=== PATIENT | female | born 1935 | race Caucasian/White ===

== ENCOUNTER 2017-02-04 09:02 | Inpatient (IN) | payer MEDICARE ==
[~2017-02-04] VITALS: Ht 167.6 cm; Wt 72.3 kg
[2017-02-04] MEDS ORDERED: LEVEMIR SQ (09:31)
[2017-02-04] MEDS ORDERED: ARMO30TA PO (09:31)
[2017-02-04] MEDS ORDERED: METF1000 PO (09:31)
[2017-02-04] MEDS ORDERED: CLON1TAB PO (09:31)
[2017-02-04] MEDS ORDERED: FLUT50SP EACH NARE (09:31)
[2017-02-04] MEDS ORDERED: ATOR40TA16 PO (09:31)
[2017-02-04] MEDS ORDERED: OXYC-432 PO (09:31)
[2017-02-04] MEDS ORDERED: ASPI-110 PO (09:31)
[2017-02-04] MEDS ORDERED: ALBUAER3 INH (09:35)
--- NOTE | 2017-02-11 11:16 | PD.HP.UP ---
H&P Update Note The Pre-Admit History and Physical Examination regarding the above named patient was reviewed (including, but not limited to, vital signs, heart, lungs, co-morbid conditions), and upon re-examination it is noted that: the patient's condition has not significantly changed since the last examination. Venancio Wilson MD Feb 11, 2017 11:16
[2017-02-11] MEDS ORDERED: CHLORHEXIDINE GLUCONATE 2 % 1 PACK (2 CLOTHS) TOPICAL PRN (11:45)
[2017-02-11] MEDS ORDERED: LACTATED RINGER'S 1000 ML IV PRN (11:45)
[2017-02-11] MEDS ORDERED: METRONIDAZOLE 500 MG/100 ML ISONTONIC SOLN IV SCH (11:45)
[2017-02-11] MEDS ORDERED: DEXT 5%-NACL 0.9% 1000 ML INJ 1,000 ML IV SCH (11:45)
[2017-02-11] MEDS ORDERED: ALVIMOPAN 12 MG CAPSULE - On Call PO SCH (11:45)
[2017-02-11] MEDS ORDERED: POVIDONE IODINE 5% (ANTISEPSIS KIT) 4 APPLICATIONS EACH NARE PRN (11:45)
[2017-02-11] MEDS ORDERED: METOPROLOL TARTRATE 25 MG TAB PO PRN (11:45)
[2017-02-11] MEDS ORDERED: INSULIN HUMAN REGULAR 1,000 UNITS/10 ML VIAL SQ PRN (11:45)
[2017-02-11] MEDS ORDERED: SODIUM CHLORID 0.9% 500 ML IV PRN (11:45)
[2017-02-11] MEDS ORDERED: LEVOFLOXACIN 500 MG PREMIX INJ 100 ML IV SCH (11:45)
[2017-02-11] MEDS ORDERED: LACTATED RINGER'S 1000 ML INJ 1,000 ML IV ONE (12:00)
[2017-02-11] MEDS ORDERED: ONDANSETRON HCL 4 MG/2 ML VIAL IV PUSH ONE (12:00)
[2017-02-11] MEDS ORDERED: NORMOSOL R INJ 1,000 ML IV ONE (12:00)
[2017-02-11] MEDS ORDERED: PROPOFOL 200 MG/20 ML AMP IV ONE (12:00)
[2017-02-11 12:11] VITALS: BP 106/59; PULSE 74; RESP 20; TEMP 98; O2SAT 99
[2017-02-11] MEDS ORDERED: BUPIVACAINE HCL PF 0.5% 30 ML VIAL ONE (14:37)
[2017-02-11] MEDS ORDERED: SUGAMMADEX SODIUM 200 MG/2 ML VIAL IV PUSH ONE ×2 (15:14)
[2017-02-11] MEDS ORDERED: HYDROmorphone HCL PF 2 MG/ML VIAL ONE (15:14)
--- NOTE | 2017-02-11 16:14 | HHI.PR ---
Immediate Post Op Note Procedure Date: Feb 11, 2017 Pre Op Diagnosis: Diverticulitis Post Op Diagnosis: same, adhesions Surgeon: Venancio Wilson [employer] Worker(s): Marcella Procedure: Exploratory lap, LAR Findings: segm of RS hard c/w diverticulitis, adhesions to lt pelvic sidewall liver nl ut/ovaries absent, Gall bladder absent Complications: none Specimen(s) removed: rectosigmoid colon Estimated blood loss: 100cc Anesthesia: General Drains: IVON IVF Patient to: PACU Patient Condition: Good Venancio Wilson MD Feb 11, 2017 16:14
[2017-02-11] MEDS ORDERED: KETOROLAC TROMETHAMINE 30 MG/ML (IVP) VIAL IVP PRN (16:15)
[2017-02-11] MEDS ORDERED: POTASSIUM CHLOR 20 MEQ PREMIX 100 ML IV PRN (16:15)
[2017-02-11] MEDS ORDERED: NALOXONE HCL 0.4 MG/ML AMP IV PRN ×2 (16:15→17:15)
[2017-02-11] MEDS ORDERED: BUPIVACAINE HCL PF 0.5% 30 ML VIAL NB SCH (16:15)
[2017-02-11] MEDS ORDERED: ENALAPRILAT 1.25 MG/ML VIAL IV PRN (16:15)
[2017-02-11] MEDS ORDERED: ACETAMINOPHEN 325 MG TAB PO PRN (16:15)
[2017-02-11] MEDS ORDERED: MORPHINE SULFATE 30 MG/30 ML PCA IV SCH (16:15)
[2017-02-11] MEDS ORDERED: Post-op Orders (for Pharmacy) MISC XX ONE (16:15)
[2017-02-11] MEDS ORDERED: POTASSIUM CHLOR 40 MEQ PREMIX 100 ML IV PRN (16:15)
[2017-02-11] MEDS ORDERED: ENALAPRILAT 2.5 MG/2 ML VIAL IV PRN (16:15)
[2017-02-11] MEDS ORDERED: SODIUM CHLORIDE 0.9% FLUSH 5 ML FLUSH IVF PRN (16:15)
[2017-02-11] MEDS ORDERED: PCA - TOTAL MG MORPHINE DELIVERED PER SHIFT SCH (16:15)
[2017-02-11] MEDS ORDERED: ACETAMINOPHEN/HYDROcodone 325 MG/5 MG TAB PO PRN (16:15)
[2017-02-11] MEDS ORDERED: BENZOCAINE 6 MG/MENTHOL 10 MG LOZENGE BUCCAL PRN (16:15)
[2017-02-11] MEDS ORDERED: fentaNYL CITRATE 250 MCG/5 ML AMP ONE (16:21)
[2017-02-11] MEDS ORDERED: ACETAMINOPHEN 1000 MG/100 ML VIAL IV ONE (16:21)
[2017-02-11] MEDS ORDERED: *HYDROmorphone PF 1 MG VIAL PERIprocedural Use ONLY ONE (16:43)
[2017-02-11] MEDS ORDERED: ALBUTEROL SULFATE 90 MCG/ACT HFA 18 GM INHALER INH PRN (16:45)
[2017-02-11] MEDS ORDERED: GLUCAGON 1 MG/ML VIAL OTHER PRN (16:45)
[2017-02-11] MEDS ORDERED: DEXTROSE 50% IN WATER 50 ML VIAL(D50) IV PRN (16:45)
[2017-02-11] MEDS ORDERED: HYDROmorphone HCL PCA 6 MG/30 ML IV ONE (17:01)
[2017-02-11] MEDS: D5-NS + KCL 20 MEQ INJ 1,000 ML IV SCH ×2 (17:12→23:31)
[2017-02-11] MEDS ORDERED: HYDROmorphone HCL PCA 6 MG/30 ML IV SCH (17:15)
[2017-02-11] MEDS: metroNIDAZOLE 500 MG INJ 100 ML IV SCH (20:55)
[2017-02-11] MEDS: METOCLOPRAMIDE HCL 10 MG/2 ML VIAL IVS SCH (21:00)
[2017-02-11] MEDS: SODIUM CHLORIDE 0.9% FLUSH 5 ML FLUSH IVF SCH (21:00)
[2017-02-11] MEDS: ONDANSETRON HCL 4 MG/2 ML VIAL IV PRN (21:53)
[2017-02-11 22:00] VITALS: BP 144/65; PULSE 92; RESP 10; TEMP 97.5; O2SAT 90
[2017-02-11] MEDS: PCA - TOTAL MG DILAUDID DELIVERED PER SHIFT SCH (22:00)
[2017-02-11 22:13] VITALS: O2SAT 95
[2017-02-12] VITALS (12 sets, daily range): BP systolic 103–152; BP diastolic 56–66; PULSE 63–88; RESP 12–21; TEMP 97.4–98.9; O2SAT 95–99
[2017-02-12] MEDS: metroNIDAZOLE 500 MG INJ 100 ML IV SCH ×2 (04:06→11:24)
[2017-02-12] MEDS: D5-NS + KCL 20 MEQ INJ 1,000 ML IV SCH ×2 (04:06→11:24)
[2017-02-12 04:11] LABS: AUTOMATED NEUTROPHIL # 7.2 TH/MM3 (1.8-7.7); BASOPHIL % 0.1 % (0.0-2.0); HEMATOCRIT 36.9 % (35.0-46.0); HEMO FLAGS DIFF FINAL; LYMPH % 3.4 % (9.0-44.0); LYMPHOCYTE # 0.3 TH/MM3 (1.0-4.8); MEAN CELL VOLUME 90.4 FL (80.0-100.0); MEAN CORPUSCULAR HEMOGLOBIN 29.8 PG (27.0-34.0); NEUT % 89.5 % (16.0-70.0); PLATELET COUNT 195 TH/MM3 (150-450); RED BLOOD COUNT 4.08 MIL/MM3 (4.00-5.30); RED CELL DISTRIBUTION WIDTH 13.5 % (11.6-17.2); WHITE BLOOD COUNT 8.1 TH/MM3 (4.0-11.0)
[2017-02-12 04:46] LABS: BICARBONATE 24.2 MEQ/L (21.0-32.0); POTASSIUM 4.8 MEQ/L (3.5-5.1)
[2017-02-12] MEDS: PCA - TOTAL MG DILAUDID DELIVERED PER SHIFT SCH ×3 (06:00→21:24)
[2017-02-12] MEDS: INSULIN NovoLIN REGULAR SUPPLEMENTAL SCALE SQ SCH ×5 (06:36→21:00)
[2017-02-12] MEDS: SODIUM CHLORIDE 0.9% FLUSH 5 ML FLUSH IVF SCH ×2 (07:33→21:00)
--- NOTE | 2017-02-12 07:33 | HHI.PR ---
Subjective Remarks C/R Surg POD#1 afebrile, VSS UO good IVON min Objective - Vital Signs Date Time Temp Pulse Resp B/P Pulse Ox O2 Delivery O2 Flow Rate FiO2 02/12/17 06:00 66 02/12/17 04:00 97.8 13 136/60 95 02/11/17 22:13 Nasal Cannula 2.00 Result Diagram: 02/12/17 0349 02/12/17 034 Objective Remarks PE alert Abd - soft, wound dry, min tympany A/P Assessment and Plan iMP: Stable post-op OOB decr IVF tx to floor Venancio Wilson MD Feb 12, 2017 07:33
[2017-02-12] MEDS: PANTOPRAZOLE SODIUM 40 MG VIAL IVP SCH (08:22)
[2017-02-12] MEDS: PANTOPRAZOLE SOD 40 MG DELAYED RELEASE TAB PO SCH (08:23)
[2017-02-12] MEDS: THYROID 30 MG TAB PO SCH (08:23)
[2017-02-12] MEDS: ALVIMOPAN 12 MG CAPSULE PO SCH ×2 (08:23→21:22)
[2017-02-12] MEDS: METOCLOPRAMIDE HCL 10 MG/2 ML VIAL IVS SCH ×2 (08:23→21:23)
[2017-02-12] MEDS ORDERED: ALVIMOPAN 12 MG CAPSULE - Post-op dosing PO SCH (09:00)
[2017-02-12] MEDS: LEVOFLOXACIN 500 MG PREMIX INJ 100 ML IV SCH (12:35)
[2017-02-12] MEDS: ONDANSETRON HCL 4 MG/2 ML VIAL IV PRN (21:23)
[2017-02-12] MEDS: ACETAMINOPHEN/HYDROcodone 325 MG/5 MG TAB PO PRN (21:23)
[2017-02-13] VITALS (7 sets, daily range): BP systolic 127–143; BP diastolic 56–72; PULSE 72–91; RESP 16–20; TEMP 97–98.4; O2SAT 94–99
[2017-02-13] MEDS: D5-NS + KCL 20 MEQ INJ 1,000 ML IV SCH ×2 (00:06→13:47)
[2017-02-13] MEDS: PCA - TOTAL MG DILAUDID DELIVERED PER SHIFT SCH ×2 (05:47→11:33)
[2017-02-13] MEDS: INSULIN NovoLIN REGULAR SUPPLEMENTAL SCALE SQ SCH ×4 (05:48→20:01)
[2017-02-13 07:06] LABS: AUTOMATED NEUTROPHIL # 6.6 TH/MM3 (1.8-7.7); BASOPHIL % 0.4 % (0.0-2.0); EOSINOPHIL # 0.1 TH/MM3 (0-0.4); EOSINOPHIL % 1.3 % (0.0-4.0); HEMATOCRIT 33.2 % (35.0-46.0); HEMO FLAGS DIFF FINAL; LYMPH % 12.5 % (9.0-44.0); MEAN CELL VOLUME 90.4 FL (80.0-100.0); MEAN CORPUSCULAR HEMOGLOBIN 29.7 PG (27.0-34.0); MEAN CORPUSCULAR HGB CONC 32.8 % (32.0-36.0); MONO % 7.1 % (0.0-8.0); NEUT % 78.7 % (16.0-70.0); PLATELET COUNT 190 TH/MM3 (150-450); RED BLOOD COUNT 3.68 MIL/MM3 (4.00-5.30); RED CELL DISTRIBUTION WIDTH 13.6 % (11.6-17.2); WHITE BLOOD COUNT 8.4 TH/MM3 (4.0-11.0)
[2017-02-13] MEDS: PANTOPRAZOLE SODIUM 40 MG VIAL IVP SCH (07:25)
[2017-02-13] MEDS: ALVIMOPAN 12 MG CAPSULE PO SCH ×2 (07:27→20:01)
[2017-02-13] MEDS: THYROID 30 MG TAB PO SCH (07:27)
[2017-02-13] MEDS: METOCLOPRAMIDE HCL 10 MG/2 ML VIAL IVS SCH (07:27)
[2017-02-13] MEDS: PANTOPRAZOLE SOD 40 MG DELAYED RELEASE TAB PO SCH (07:27)
[2017-02-13] MEDS: SODIUM CHLORIDE 0.9% FLUSH 5 ML FLUSH IVF SCH ×2 (07:28→20:01)
[2017-02-13 07:43] LABS: BICARBONATE 21.3 MEQ/L (21.0-32.0); POTASSIUM 4.1 MEQ/L (3.5-5.1)
[2017-02-13] MEDS: FUROSEMIDE 20 MG/2 ML VIAL IV PUSH SCH ×2 (07:44→20:01)
[2017-02-13] MEDS: ACETAMINOPHEN/HYDROcodone 325 MG/5 MG TAB PO PRN ×2 (09:11→22:18)
[2017-02-13] MEDS: LEVOFLOXACIN 500 MG PREMIX INJ 100 ML IV SCH (11:55)
[2017-02-13] MEDS: ONDANSETRON HCL 4 MG/2 ML VIAL IV PRN ×2 (16:52→22:18)
--- NOTE | 2017-02-13 17:41 | HHI.PR ---
Subjective Remarks C/R Surg POD#2 afebrile, VSS UO good IVON min Objective - Vital Signs Date Time Temp Pulse Resp B/P Pulse Ox O2 Delivery O2 Flow Rate FiO2 02/13/17 11:33 14 02/13/17 08:00 97.3 82 143/69 95 02/12/17 20:00 Room Air 02/12/17 08:32 21 02/12/17 07:00 2.00 Result Diagram: 02/13/17 0537 02/13/17 0537 Objective Remarks PE alert Abd - soft, wound dry, min tympany, On-Q dc'd A/P Assessment and Plan iMP: OOB decr IVF adv diet Venancio Wilson MD Feb 13, 2017 17:41
[2017-02-13] MEDS ORDERED: METOCLOPRAMIDE HCL 10 MG/2 ML VIAL IVS PRN (18:00)
[2017-02-14 04:00] VITALS: BP 118/56; PULSE 74; RESP 18; TEMP 97.5; O2SAT 95
[2017-02-14] MEDS: D5-NS + KCL 20 MEQ INJ 1,000 ML IV SCH (05:46)
[2017-02-14] MEDS: INSULIN NovoLIN REGULAR SUPPLEMENTAL SCALE SQ SCH ×4 (05:48→20:19)
--- NOTE | 2017-02-14 06:10 | MP ---
cc: CAMI HUANG M.D. DATE OF SURGERY: 02/11/2017 PREOPERATIVE DIAGNOSIS: Chronic diverticulitis with obstruction. OPERATION: 1. Exploratory laparotomy with lysis of adhesions, proctosigmoidectomy and low pelvic anastomosis. 2. Omental flap. POSTOPERATIVE DIAGNOSIS: Exploratory laparotomy with lysis of adhesions, proctosigmoidectomy and low pelvic anastomosis to omental flap. SURGEON: Cami Huang MD. SURG TECH: Thomas Naranjo MD. PROCEDURE The patient was placed in the supine position. After adequate general anesthesia her legs were placed in [place] stirrups and supported appropriately. The abdomen and perineum then prepped with Betadine solution and draped in usual sterile fashion. With Dr. Naranjo's assistance the abdomen was opened through an infraumbilical transverse incision dividing the rectus muscles with electrocautery. Exploration revealed quite a few adhesions upon getting into the abdominal cavity from her previous midline incision. Most of these were omental adhesions stuck down to the pelvis at the site of her chronic diverticular inflammation. The colon was thickened and consistent with chronic diverticular disease. No acute inflammation was seen. The sigmoid colon was also twisted and somewhat fixed in position at the previous site of the left adnexa making for very tight sigmoid loop turned. The proximal colon was palpated and felt to be pretty unremarkable. The liver was normal. The gallbladder was absent. The stomach and duodenum were normal. The great vessels were of normal caliber and fairly soft. The uterus and ovaries were both absent. First the sigmoid colon was mobilized medially by dividing along the white line of Toldt. The left ureter was easily identified and preserved. Dissection then proceeded up the left gutter freeing attachments to the retroperitoneum mobilizing the splenic flexure entering the lesser sac and taking the gastrocolic omentum off the transverse colon. The right retroperitoneal space was then opened the bowel dissected off the presacral fascia preserving the presacral nerves. The pedicle for the superior hemorrhoidal vessels identified and divided between Joy's obtaining hemostasis with Vicryl ties. Dissection then proceeded down to the pelvis mobilizing the bowel off the presacral fascia toward the pelvic floor. The rectum appeared of suitable for anastomosis and the bowel, the mesorectum was divided in the proximal rectum between Gricelda between using the electrocautery and Joy clamps for hemostasis as needed. The bowel was finally divided between a pursestring suture device and a Gricelda clamp. The bowel was then sized to reach the rectal stump without tension and with good blood supply dividing the marginal artery at the appropriate point. The bowel was then divided between a pursestring suture device and a Gricelda clamp removing the specimen. The end of the bowel was sized to accept a 29-mm EEA stapling anvil. This was secured with a pursestring suture. Dr. Nraanjo inserted the EEA stapling instrument transanally under direct vision was brought up to the rectal pouch, into the rectal pouch and the pursestring suture tied. The stapler was then reassembled the bowel line properly the staple closed and fired upon withdrawal two complete doughnuts of tissue were seen. Gentle insufflation did confirm an airtight anastomosis. The abdomen was then irrigated copiously with normal saline. Adequate hemostasis was achieved at all sites. Gonzalo-King drain was placed down into the presacral space and brought up through a stab wound in the right lower quadrant secured to the skin with a nylon suture. The transverse incision was closed anatomically using one #1 PDS sutures in a running fashion to reapproximate the respective fascial layers. Two catheters were placed into the rectus sheath on both sides and brought up through subcutaneous tunnels above the transverse incision. The Subcu tissues irrigated copiously and the skin closed with a running subcuticular Vicryl suture. Wound area washed with normal saline and dried, sterile dressing of Telfa and gauze applied. The patient tolerated the procedure quite well and was brought to recovery room in stable condition. Sponge and needle counts were correct at the end of the procedure. MD ESSENCE Khanna/lela /5:57 PM /5:38 AM
[2017-02-14 08:00] VITALS: BP 130/62; PULSE 72; RESP 16; TEMP 98.2; O2SAT 96
--- NOTE | 2017-02-14 08:44 | HHI.PR ---
Subjective Remarks POD#3 LAR comfortable, hungry Objective Vital Signs Date Time Temp Pulse Resp B/P Pulse Ox O2 Delivery O2 Flow Rate FiO2 02/14/17 08:00 98.2 72 16 130/62 96 02/14/17 04:00 97.5 74 18 118/56 95 02/13/17 23:00 20 02/13/17 22:00 98.4 81 20 131/68 95 02/13/17 20:00 Room Air 02/13/17 20:00 97.2 84 20 127/60 97 02/13/17 16:00 97.7 72 18 137/63 99 02/13/17 12:00 97.0 91 16 140/61 96 02/13/17 11:33 14 I/O 02/13/17 02/13/17 02/13/17 02/14/17 02/14/17 02/14/17 07:00 15:00 23:00 07:00 15:00 23:00 Intake Total 411 ml 910 ml 120 ml 120 ml Output Total 375 ml 145 ml Balance 36 ml 910 ml -25 ml 120 ml Intake Oral 0 ml 360 ml 120 ml 120 ml IV Total 411 ml 550 ml 0 ml Output Urine Total 325 ml Drainage Total 50 ml 145 ml # Voids 1 4 6 # Bowel Movements 0 0 0 0 Result Diagram: 02/13/17 0537 02/13/17 05 Objective Remarks Abdomen soft, nondistended, tender Wound clean IVON serosanguinous Assessment and Plan Assessment and Plan Advance diet Continue IVON HL IV Home soon Helena Mcneil MD Feb 14, 2017 08:44
[2017-02-14] MEDS: PANTOPRAZOLE SOD 40 MG DELAYED RELEASE TAB PO SCH (09:00)
[2017-02-14] MEDS: FUROSEMIDE 20 MG/2 ML VIAL IV PUSH SCH ×2 (09:00→20:17)
[2017-02-14] MEDS: PANTOPRAZOLE SODIUM 40 MG VIAL IVP SCH (09:42)
[2017-02-14] MEDS: SODIUM CHLORIDE 0.9% FLUSH 5 ML FLUSH IVF SCH ×2 (09:43→20:18)
[2017-02-14] MEDS: THYROID 30 MG TAB PO SCH (09:43)
[2017-02-14] MEDS: ALVIMOPAN 12 MG CAPSULE PO SCH ×2 (10:19→20:16)
[2017-02-14 12:00] VITALS: BP 123/37; PULSE 83; RESP 16; TEMP 98.6; O2SAT 97
[2017-02-14 16:00] VITALS: BP 137/71; PULSE 78; RESP 17; TEMP 97.9; O2SAT 97
[2017-02-14 20:00] VITALS: BP 127/63; PULSE 80; RESP 18; TEMP 99.5; O2SAT 94
[2017-02-15] VITALS: BP 117/54; PULSE 71; RESP 18; TEMP 99.3; O2SAT 95
[2017-02-15] MEDS: INSULIN NovoLIN REGULAR SUPPLEMENTAL SCALE SQ SCH ×4 (05:49→21:00)
[2017-02-15 08:00] VITALS: BP 129/65; PULSE 81; RESP 17; TEMP 98.7; O2SAT 96
[2017-02-15] MEDS: ALVIMOPAN 12 MG CAPSULE PO SCH ×2 (09:00→21:00)
[2017-02-15] MEDS: PANTOPRAZOLE SODIUM 40 MG VIAL IVP SCH (09:00)
[2017-02-15] MEDS: SODIUM CHLORIDE 0.9% FLUSH 5 ML FLUSH IVF SCH ×2 (09:00→21:00)
[2017-02-15] MEDS: FUROSEMIDE 20 MG/2 ML VIAL IV PUSH SCH ×2 (09:00→21:00)
--- NOTE | 2017-02-15 09:06 | HHI.PR ---
Subjective Remarks POD#3 LAR comfortable, slightly nauseous Objective Vital Signs Date Time Temp Pulse Resp B/P Pulse Ox O2 Delivery O2 Flow Rate FiO2 02/15/17 08:00 98.7 81 17 129/65 96 02/15/17 00:00 99.3 71 18 117/54 95 02/14/17 20:10 Room Air 02/14/17 20:00 99.5 80 18 127/63 94 02/14/17 16:00 97.9 78 17 137/71 97 02/14/17 12:00 98.6 83 16 123/37 97 I/O 02/14/17 02/14/17 02/14/17 02/15/17 02/15/17 02/15/17 07:00 15:00 23:00 07:00 15:00 23:00 Intake Total 120 ml 1720 ml 240 ml 320 ml Output Total 75 ml 60 ml 970 ml Balance 120 ml 1645 ml 180 ml -650 ml Intake Oral 120 ml 1720 ml 240 ml 320 ml Output Urine Total 900 ml Drainage Total 75 ml 60 ml 70 ml # Voids 6 7 1 1 # Bowel Movements 0 5 0 0 Result Diagram: 02/13/17 0537 02/13/17 0537 Objective Remarks Abdomen soft, nondistended, tender Wound clean IVON serosanguinous Assessment and Plan Assessment and Plan Advance diet D/C IVON Recheck labs Helena Mcneil MD Feb 15, 2017 09:05
[2017-02-15] MEDS ORDERED: clonazePAM 0.5 MG TAB PO PRN (09:15)
[2017-02-15] MEDS: PANTOPRAZOLE SOD 40 MG DELAYED RELEASE TAB PO SCH (09:19)
[2017-02-15] MEDS: THYROID 30 MG TAB PO SCH (11:28)
[2017-02-15 12:00] VITALS: BP 110/62; PULSE 77; RESP 16; TEMP 98.6; O2SAT 97
[2017-02-15 12:11] LABS: BICARBONATE 26.7 MEQ/L (21.0-32.0); MAGNESIUM 1.8 MG/DL (1.5-2.5); POTASSIUM 3.8 MEQ/L (3.5-5.1)
[2017-02-15 16:00] VITALS: BP 118/60; PULSE 78; RESP 17; TEMP 97.5; O2SAT 97
[2017-02-15 20:00] VITALS: BP 109/56; PULSE 80; RESP 20; TEMP 96.7; O2SAT 95
[2017-02-16] VITALS: BP 121/60; PULSE 84; RESP 20; TEMP 98.1; O2SAT 94
[2017-02-16] MEDS: INSULIN NovoLIN REGULAR SUPPLEMENTAL SCALE SQ SCH ×3 (07:00→16:00)
[2017-02-16 07:53] VITALS: BP 117/60; PULSE 84; RESP 19; TEMP 97.4; O2SAT 96
[2017-02-16] MEDS: FUROSEMIDE 20 MG/2 ML VIAL IV PUSH SCH (09:00)
[2017-02-16] MEDS: SODIUM CHLORIDE 0.9% FLUSH 5 ML FLUSH IVF SCH (09:00)
[2017-02-16] MEDS: ALVIMOPAN 12 MG CAPSULE PO SCH (09:00)
[2017-02-16] MEDS: PANTOPRAZOLE SODIUM 40 MG VIAL IVP SCH (09:00)
[2017-02-16] MEDS: PANTOPRAZOLE SOD 40 MG DELAYED RELEASE TAB PO SCH (09:08)
[2017-02-16] MEDS: THYROID 30 MG TAB PO SCH (09:09)
[2017-02-16 12:00] VITALS: BP 126/60; PULSE 77; RESP 19; TEMP 97.1; O2SAT 95
--- NOTE | 2017-02-16 15:04 | HHI.PR ---
Subjective Remarks C/R Surg POD#5 afebrile, VSS UO good IVON dc'd +BM Objective - Vital Signs Date Time Temp Pulse Resp B/P Pulse Ox O2 Delivery O2 Flow Rate FiO2 02/16/17 12:00 97.1 77 19 126/60 95 02/15/17 22:00 Room Air 02/12/17 08:32 21 02/12/17 07:00 2.00 Result Diagram: 02/13/17 0537 02/15/17 1108 Objective Remarks PE alert Abd - soft, wound dry, min tympany, A/P Assessment and Plan iMP: OOB decr IVF adv diet dc plans Venancio Wilson MD Feb 16, 2017 15:04
--- NOTE | 2017-03-10 21:21 | MD ---
cc: VERONICA SEE,CAMI Olmos M.D. ADMISSION DATE: 02/11/2017 DISCHARGE DATE: 02/16/2017 ADMISSION DIAGNOSIS Obstructing diverticulitis. PROCEDURE: 02/11/2017 exploratory laparotomy with lysis of adhesions, proctosigmoidectomy and low pelvic anastomosis omental flap. DISCHARGE DIAGNOSES Obstructing diverticular disease of the rectosigmoid. Postop adhesions. HISTORY OF PRESENT ILLNESS Ms. Lemus is an 82 year-old female who has been followed now for sometime after several attacks of diverticulitis. The one in the hospital was fairly severe, took a long time to get better with IV fluids, antibiotics and bowel rest. The patient was seen recently for additional abdominal pain. It seems to be more severe in the left lower quadrant over the last few weeks despite additional medical therapy. Denies any fever. Bowel movements are fair, quite small in caliber. She needs a stool softener or laxative on a regular basis. Denies any abdominal distension. No significant bleeding or melena. Appetite was good. However, weight has gone down about ten pounds to 153. The patient was admitted at this time for definitive surgical resection. Please seen the admitting history and physical for complete past medical and surgical history. PERTINENT PHYSICAL A very thin pleasant older female in no acute distress. Abdomen was very soft and doughy. Bowel sounds are active. No rebound or guarding or any masses. Some tenderness in the lower abdomen. Anal inspection reveals benign canal. Digital exam revealed good to fair tone with no masses, some thickening of the pelvic sidewall. No mucosal irregularity or obstruction. HOSPITAL COURSE After admission, the patient was taken to the operating room on February 11, 2017 at which point she underwent exploratory laparotomy with lysis of adhesions, proctosigmoidectomy and low pelvic anastomosis, omental flap. She was found to have a lot of omental adhesions stuck down in the pelvis, attached to her diverticular segment which was thickened and chronically inflamed. No acute abscess was seen. The sigmoid colon was also twisted and somewhat fixed in position from previous [employer] surgery. She underwent bowel resection without difficulty. Postoperatively she was stabilized in the Intensive Care Unit. She required some physical therapy for postop strengthening and ambulation. Her bowel function returned rather promptly and her diet was advanced accordingly. She did have quite a bit of drainage from her pelvic Gonzalo-King drain. She continued to gain strength and required some respiratory treatment for postoperative atelectasis. She continued to improve having her IV fluids tapered and was considered doing well enough to be considered for discharge home on the February. Final pathology report did reveal a segment of rectosigmoid with significant diverticulosis and adhesions. DISCHARGE INSTRUCTIONS: The patient was discharged eating a regular diet. She was encouraged to ambulate daily avoiding any heavy lifting or straining. All preop medications were to be resumed. The patient will be seen in the office in one week's time for routine follow up. Any problems prior to the office visit she was instructed to call for more urgent attention. MD ESSENCE Khanna/TASHIA /5:28 PM /8:59 PM
== END 2017-02-16 18:26 | disposition home or self-care (01) | DRG 331 ==
LOC: HSDI 02-11 11:07 → N03A 02-11 21:43 → N07B 02-12 17:49
PROVIDERS: ADMIT Colon & Rectal Surgery; ATTEND Colon & Rectal Surgery
PROC: 0DNS4ZZ (ICD-10-PCS; 2017-02-11)
PROC: 0DTP0ZZ Resection of Rectum, Open Approach (ICD-10-PCS; 2017-02-11)
PROC: 0DTN0ZZ Resection of Sigmoid Colon, Open Approach (ICD-10-PCS; principal; 2017-02-11 13:27)
DX: K57.92 Diverticulitis of intestine, part unspecified, without perforation or abscess without bleeding (principal); E10.22 Type 1 diabetes mellitus with diabetic chronic kidney disease; N18.3 Chronic kidney disease, stage 3 (moderate); E78.5 Hyperlipidemia, unspecified; K21.9 Gastro-esophageal reflux disease without esophagitis; K66.0 Peritoneal adhesions (postprocedural) (postinfection); F41.9 Anxiety disorder, unspecified; Z79.4 Long term (current) use of insulin; Z88.1 Allergy status to other antibiotic agents; Z88.5 Allergy status to narcotic agent; Z88.0 Allergy status to penicillin; Z88.2 Allergy status to sulfonamides; Z88.7 Allergy status to serum and vaccine
CPT/HCPCS: 80048; 82948; 83735; 85025; 86850; 86900; 86901; 87641; 88307; 94150; C9113; J0131; J1170; J1885; J1940; J1956; J2405; J2765; J3010; J3480; J7120

== ENCOUNTER → 2017-02-04 | Outpatient (CLI) | payer MEDICARE ==
[~2017-02-04] MED LIST: ALBUAER3 INH; ARMO30TA PO; ASPI-110 PO; ASPI81TA82 PO; ATOR10 PO; ATOR40TA16 PO; CETI10 PO; CLON1TAB PO; FLUT50SP EACH NARE; GLUC1000 PO; ISOS30 PO; LEVEMIR SQ; METF1000 PO; OXYC-432 PO; THYR30 PO
[2017-02-04 10:36] LABS: BASOPHIL % 0.6 % (0.0-2.0); EOSINOPHIL # 0.3 TH/MM3 (0-0.4); EOSINOPHIL % 3.7 % (0.0-4.0); HEMATOCRIT 38.2 % (35.0-46.0); HEMO FLAGS DIFF FINAL; LYMPH % 24.4 % (9.0-44.0); LYMPHOCYTE # 1.9 TH/MM3 (1.0-4.8); MEAN CELL VOLUME 90.1 FL (80.0-100.0); MEAN CORPUSCULAR HGB CONC 33.3 % (32.0-36.0); MONO % 8.3 % (0.0-8.0); PLATELET COUNT 241 TH/MM3 (150-450); RED BLOOD COUNT 4.24 MIL/MM3 (4.00-5.30); RED CELL DISTRIBUTION WIDTH 13.5 % (11.6-17.2); WHITE BLOOD COUNT 7.9 TH/MM3 (4.0-11.0)
[2017-02-04 10:50] LABS: APTT (PATIENT) 25.7 SEC (24.3-30.1); INTERNATIONAL NORMALIZED RATIO 0.9 RATIO; PROTHROMBIN TIME - PATIENT 10.4 SEC (9.8-11.6)
[2017-02-04 10:53] LABS: BACTERIA, URINE FEW /hpf; BLOOD, URINE NEG (NEG); COMMENT (UR) CULT NOT INDICATED; CULTURE IF INDICATED CULT NOT INDICATED; GLUCOSE,URINE NEG (NEG); KETONE, URINE NEG (NEG); MUCUS URINE FEW /lpf (OCC); URINE COLOR YELLOW (YELLW/STRAW)
[2017-02-04 10:56] LABS: NITRITE,URINE POS (NEG)
--- NOTE | 2017-02-04 12:07 | RADRPT ---
EXAM DATE/TIME: 02/04/2017 10:20 [place] COMPARISON: CHEST SINGLE AP, January 15, 2016, 4:26. CHEST SINGLE AP, April 15, 2016, 16:38. INDICATIONS : Pre-Op for colon resection. MEDICAL HISTORY : None. SURGICAL HISTORY : None. ENCOUNTER: Initial ACUITY: 1 day PAIN SCORE: 0/10 LOCATION: Bilateral chest FINDINGS: PA and lateral views of the chest. 1 cm nodular density in the medial left upper lung zone. Lungs oth erwise clear Cardiomediastinal silhouette within normal limits. No evidence of pleural effusion or pn eumothorax. Vertebroplasty or kyphoplasty of 2 lower thoracic levels. CONCLUSION: 1 cm nodular density in the medial left upper lobe. Recommend chest CT without contrast f or further evaluation. No other acute cardiopulmonary disease identified. Jaylen Pryor MD on February 04, 2017 at 12:04 Board Certified Radiologist. This report was verified electronically.
[2017-02-04 12:49] LABS: ALT (GPT) 19 U/L (10-53); ANION GAP 6 MEQ/L (5-15); AST (GOT) 18 U/L (15-37); BICARBONATE 26.7 MEQ/L (21.0-32.0); BLOOD UREA NITROGEN 18 MG/DL (7-18); CHLORIDE 108 MEQ/L (98-107); GLOMERULAR FILTRATION RATE 61 ML/MIN (>89); GLUCOSE,FASTING 78 MG/DL (74-99); POTASSIUM 4.1 MEQ/L (3.5-5.1); SODIUM (NA) 141 MEQ/L (136-145)
[2017-02-04 12:52] LABS: ALKALINE PHOSPHATASE 76 U/L (45-117); TOTAL BILIRUBIN ADULT 0.3 MG/DL (0.2-1.0)
--- NOTE | 2017-02-05 12:09 | EKG ---
Date Performed: 02/04/2017 Time Performed: 09:18:11 PTAGE: 81 years EKG: Sinus rhythm WITH FIRST DEGREE AV BLOCK ABNORMAL ECG PREVIOUS TRACING : 04/15/2016 23.55 Unable to compare to previous EKG as not loaded DOCTOR: Orion Linda Interpretating Date/Time 02/05/2017 12:08:59
== END ==
LOC: CPRE 08:59
PROVIDERS: ATTEND Colon & Rectal Surgery
DX: Z01.812 Encounter for preprocedural laboratory examination (principal); Z01.810 Encounter for preprocedural cardiovascular examination; Z01.811 Encounter for preprocedural respiratory examination; K57.32 Diverticulitis of large intestine without perforation or abscess without bleeding; Z79.01 Long term (current) use of anticoagulants; I44.0 Atrioventricular block, first degree; R94.31 Abnormal electrocardiogram [ECG] [EKG]; J98.4 Other disorders of lung
CPT/HCPCS: 36415; 71020; 80053; 81001; 85025; 85610; 85730; 93005